=== PATIENT | female | born 1990 | race Caucasian/White ===

== ENCOUNTER → 2018-09-26 14:26 | Outpatient (CLI) | payer OTHER, SELFPAY ==
--- NOTE | 2018-09-26 13:42 | TONS_PTH ---
PATIENT: LOUISA KHALIL LOC: [facility] U#:[id number] AGE/SX: 34/F ROOM: RE09/26/[address]: Dr. Danish Eid MD : 1990 BED: DIS: SPEC #: [id number] RECD: 09/26/18 14:26 STATUS: NIRMALA ENID #: [id number] MILAGRO: 09/26/18 13:[address]: Danish Eid DEPT: SURGICAL PATHOLOGY RECD BY: Yanique Ybarra ENTERED: 09/26/18 15:51 SP TYPE: TONSILS OTHR DR: ISRAEL Tissues: Tonsil, NOS Procedures: Surgery Specimen Level III HEADER OPERATION: tonsillectomy PRE-OP DIAGNOSIS: Chronic tonsillitis TISSUE SUBMITTED: Tonsils, right pinned MICROSCOPIC DIAGNOSIS Right and left tonsils, bilateral tonsillectomies: Benign lymphoid follicular hyperplasia, consistent with chronic tonsillitis. Organisms consistent with actinomyces. AM:ramon 09/27/18 MICROSCOPIC DESCRIPTION Slides are reviewed. GROSS DESCRIPTION Received is one container labeled with the patient's name and designated tonsils - pin on right are two tonsils that in aggregate weigh 13.3 gm. The right tonsil has a pin on it and measures 3.5 x 2.2 x 1.6 cm. The left tonsil measures 4 x 2.5 x 1.6 cm. Both tonsils are similar in appearance. The external surfaces are pink-ortega, smooth, glistening and somewhat lobulated. Focally they are hemorrhagic, granular and bear cautery artifact. Serial cross sections through the tonsils reveal normal tonsillar architecture. Sections are submitted in two cassettes as follows: 1 - right tonsil, 2 - left tonsil. / AM:ramon 09/26/18 TC:5 [facility]: [id number] x2
== END ==
LOC: LABSPEC 15:19
PROVIDERS: Referring Provider Otolaryngology; Visit Provider Otolaryngology
DX: J35.01 Chronic tonsillitis (principal)
CPT/HCPCS: 88304